=== PATIENT | male | born 1955 | race Caucasian/White ===

== ENCOUNTER 2016-05-11 13:45 | Observation (INO) | payer OTHER ==
[~2016-05-11] VITALS: Ht 167.6 cm; Wt 75.0 kg
[~2016-05-11 13:45] MED LIST: B12-1CHW CHEW; METO25 PO; OMEP40CA2; ST J81CH PO
[2016-05-11 13:46] VITALS: BP 205/106; PULSE 92; RESP 24; TEMP 97.7; O2SAT 99
[2016-05-11] MEDS ORDERED: ONDANSETRON HCL 4 MG/2 ML VIAL IV PUSH ONE (14:15)
[2016-05-11] MEDS ORDERED: MORPHINE SULFATE 4 MG/ML INJ IV PUSH ONE ×2 (14:15→16:00)
[2016-05-11] MEDS ORDERED: OMEP20TA PO (14:19)
[2016-05-11] MEDS ORDERED: VITA500T4 PO (14:19)
[2016-05-11] MEDS ORDERED: METO50TA PO (14:19)
[2016-05-11] MEDS ORDERED: VITA50TA PO (14:19)
[2016-05-11 14:40] LABS: AUTOMATED NEUTROPHIL # 2.2 TH/MM3 (1.8-7.7); BASOPHIL % 0.9 % (0.0-2.0); EOSINOPHIL % 0.8 % (0.0-4.0); HEMATOCRIT 36.5 % (39.0-51.0); LYMPH % 30.6 % (9.0-44.0); LYMPHOCYTE # 1.2 TH/MM3 (1.0-4.8); MEAN CELL VOLUME 102.4 FL (80.0-100.0); MEAN CORPUSCULAR HEMOGLOBIN 34.4 PG (27.0-34.0); MEAN CORPUSCULAR HGB CONC 33.6 % (32.0-36.0); MONO % 9.4 % (0.0-8.0); NEUT % 58.3 % (16.0-70.0); PLATELET COUNT 84 TH/MM3 (150-450); RED BLOOD COUNT 3.57 MIL/MM3 (4.50-5.90); RED CELL DISTRIBUTION WIDTH 14.6 % (11.6-17.2); WHITE BLOOD COUNT 3.8 TH/MM3 (4.0-11.0)
[2016-05-11 14:43] LABS: HEMO FLAGS AUTO DIFF
--- NOTE | 2016-05-11 14:44 | PD ---
HPI Chief Complaint: Headache Time Seen by Provider: 14:37 Travel History International Travel<30 days: No Contact w/Intl Traveler<30days: No Traveled to known affect area: No History of Present Illness HPI 61-year-old male that presents to the ED for evaluation of headache. Per patient about 2 days ago he had a fall. Per patient she's had falls like this in the past but this didn't hit his head really hard. Per patient he was seen at [facility] [place] and per patient he was diagnosed with a brain hematoma. Per patient his been doing well and per significant other who is a nurse states that he's been doing well until today. Today he developed a severe pain in his head. Per patient the pain is severe 10 out of 10. Per patient feels like the heads about to explode. He is never had pain like this before. He denies suffering headaches usually. Per patient she's had headaches since the injury but not as bad as this one. He states that he was sent home yesterday but unclear as to what they sent him out with. Per patient he was told that he needed to follow with a neurologist outpatient. brought the patient here because patient continues to complain of severe pain and would like patient to be evaluated here. He denies any numbness, tilling, weakness. No blurry vision or double vision. Mentation appears to be normal per . No allergies to medication. Patient takes no blood thinners and he did use to take an aspirin before the injury but he was told not to. Has no allergies to medication. No other medical problems. No new falls. PFSH Past Medical History Atrial Fibrillation: Yes Heart Rhythm Problems: Yes (AFIB) Cardiac Catheterization: Yes Cardiovascular Problems: Yes (CT, CARDIAC CATH) High Cholesterol: Yes (PREVIOUS) Congestive Heart Failure: No Diabetes: No Hypertension: Yes Myocardial Infarction: Yes (2 YEARS AGO PER THE PATIENT) Tetanus Vaccination: < 5 Years Influenza Vaccination: Yes Past Surgical History Coronary Artery Bypass Graft: No Social History Alcohol Use: No Tobacco Use: No (3-4 CIGARETTES PER DAY) Substance Use: No Allergies-Medications (Allergen,Severity, Reaction): Coded Allergies: No Known Allergies (Unverified , 05/11/16) Reported Meds & Prescriptions Reported Meds & Active Scripts Active Reported Vitamin B-1 (Thiamine HCl) 50 Mg Tab 50 Mg PO DAILY Omeprazole 20 Mg Tab 20 Mg PO DAILY Vitamin B-12 (Cyanocobalamin) 500 Mcg Tab 500 Mcg PO DAILY Metoprolol Tartrate 50 Mg Tab 50 Mg PO DAILY Review of Systems Except as stated in HPI: all other systems reviewed are Neg Physical Exam Narrative GENERAL: SKIN: Warm and dry. HEAD: Atraumatic. Normocephalic. EYES: Pupils equal and round 4 mm reactive to light and accommodation. No scleral icterus. No injection or drainage. ENT: No nasal bleeding or discharge. Mucous membranes pink and moist. Tongue is midline. No uvula deviation. NECK: Trachea midline. No JVD. CARDIOVASCULAR: Regular rate and rhythm. No murmurs, S3, S4. RESPIRATORY: No accessory muscle use. Clear to auscultation. Breath sounds equal bilaterally. GASTROINTESTINAL: Abdomen soft, non-tender, nondistended. Hepatic and splenic margins not palpable. MUSCULOSKELETAL: Extremities without clubbing, cyanosis, or edema. No obvious deformities. Full range of motion of the upper and lower extremities bilaterally. 2+ pulses bilaterally. NEUROLOGICAL: Awake and alert. No obvious cranial nerve deficits. Motor grossly within normal limits. Five out of 5 muscle strength in the arms and legs. Normal speech. Romberg is negative. Rhomberg test negative. Ambulate with no difficulty. PSYCHIATRIC: Appropriate mood and affect; insight and judgment normal. Data Data Last Documented VS Vital Signs Date Time Temp Pulse Resp B/P Pulse Ox O2 Delivery O2 Flow Rate FiO2 05/11/16 15:54 73 17 164/90 95 Room Air 05/11/16 13:46 97.7 Orders Complete Blood Count With Diff (05/11/16 14:09) Basic Metabolic Panel (Bmp) (05/11/16 14:09) Prothrombin Time / Inr (Pt) (05/11/16 14:09) Act Partial Throm Time (Ptt) (05/11/16 14:09) Magnesium (Mg) (05/11/16 14:09) Ct Brain W/O Iv Contrast(Rout) (05/11/16 14:09) Iv Access Insert/Monitor (05/11/16 14:09) Morphine Inj (Morphine Inj) (05/11/16 14:15) Ondansetron Inj (Zofran Inj) (05/11/16 14:15) Morphine Inj (Morphine Inj) (05/11/16 16:00) Electrocardiogram (05/11/16 16:33) Orthostatic Vital Signs (05/11/16 16:33) Labs Laboratory Tests Test 05/11/16 14:20 White Blood Count 3.8 TH/MM3 Red Blood Count 3.57 MIL/MM3 Hemoglobin 12.3 GM/DL Hematocrit 36.5 % Mean Corpuscular Volume 102.4 FL Mean Corpuscular Hemoglobin 34.4 PG Mean Corpuscular Hemoglobin 33.6 % Concent Red Cell Distribution Width 14.6 % Platelet Count 84 TH/MM3 Mean Platelet Volume 8.3 FL Neutrophils (%) (Auto) 58.3 % Lymphocytes (%) (Auto) 30.6 % Monocytes (%) (Auto) 9.4 % Eosinophils (%) (Auto) 0.8 % Basophils (%) (Auto) 0.9 % Neutrophils # (Auto) 2.2 TH/MM3 Lymphocytes # (Auto) 1.2 TH/MM3 Monocytes # (Auto) 0.4 TH/MM3 Eosinophils # (Auto) 0.0 TH/MM3 Basophils # (Auto) 0.0 TH/MM3 CBC Comment AUTO DIFF Differential Comment AUTO DIFF CONFIRMED Platelet Estimate LOW Platelet Morphology Comment NORMAL Stomatocytes 1+ Prothrombin Time 11.0 SEC Prothromb Time International 1.0 RATIO Ratio Activated Partial 24.9 SEC Thromboplast Time Sodium Level 139 MEQ/L Potassium Level 4.0 MEQ/L Chloride Level 107 MEQ/L Carbon Dioxide Level 25.5 MEQ/L Anion Gap 7 MEQ/L Blood Urea Nitrogen 10 MG/DL Creatinine 0.91 MG/DL Estimat Glomerular Filtration 84 ML/MIN Rate Random Glucose 137 MG/DL Calcium Level 9.2 MG/DL Magnesium Level 1.8 MG/DL [facility] Medical Decision Making Medical Screen Exam Complete: Yes Emergency Medical Condition: Yes Medical Record Reviewed: Yes Interpretation(s) CBC & BMP Diagram 05/11/16 14:20 coags WNL Last Impressions Head CT 05/11/16 3379 Signed Impressions: Service Date/Time: Wednesday, May 11, 2016 15:07 - CONCLUSION: Negative for acute process.. Jared Powers MD FACR Differential Diagnosis Headache versus sprain bleed versus hematoma versus stroke versus CVA versus cephalgia Narrative Course 61-year-old male that presents to the ED for evaluation of headache. Patient was properly examined and was found to have signs and symptoms concerning for brain bleed. Patient does have a history of brain hematoma. Partially patient was initially seen at a different facility. At This time and do recommend new imaging as patient's symptoms appear to be worsening as well as labs. Medical records from previous facility will be obtained. Patient was given IV pain medication. Labs and imaging showed no sign of acute disease. CT here did not show any sign of hematoma or bleeding. I was able to get the records from [facility] and it did show that the CT show a 3-4 mm hematoma on the left brain. Per the medical records he did not require any surgery at the time as it appeared to be chronic. From the medical records at this noticed that they mentioned multiple times the patient has had multiple syncopal episodes in the past 3 weeks. Unclear if patient has had any workup for this. Medical records did not state anything about the syncope other than the reason for the head injury. Case was discussed in my attending Dr Clayton who recommends the patient likely requires admission for syncopal workup as there is no clear reason as to why he is having this syncopal episodes. This was discussed with the family and patient who are in agreement with plan. RAJEEV was paged. Spoke with Dr Kyees who agrees with admission for syncopal workup. Procedures EKG Prior to Arrival: No Diagnosis Primary Impression: Syncopal episodes Qualified Code: R55 - Syncope, unspecified syncope type Additional Impression: Cephalgia Qualified Code: R51 - Acute nonintractable headache, unspecified headache type Admitting Information Admitting Physician Requests: Hugo Brown May 11, 2016 14:44
[2016-05-11 14:51] VITALS: BP 154/80; PULSE 74; RESP 13; O2SAT 95
[2016-05-11 14:53] LABS: BICARBONATE 25.5 MEQ/L (21.0-32.0); MAGNESIUM 1.8 MG/DL (1.5-2.5)
[2016-05-11 14:57] LABS: APTT (PATIENT) 24.9 SEC (24.3-30.1)
--- NOTE | 2016-05-11 15:21 | RADRPT ---
EXAM DATE/TIME: 05/11/2016 15:07 [facility] COMPARISON: No previous studies available for comparison. INDICATIONS : Cephalgia with dizziness. RADIATION DOSE: 38.28 CTDIvol (mGy) MEDICAL HISTORY : Cardiovascular disease. Hypertension. SURGICAL HISTORY : None. ENCOUNTER: Initial ACUITY: 1 day PAIN SCALE: 6/10 LOCATION: cranial TECHNIQUE: Multiple contiguous axial images were obtained of the head. Using automated exposure control and adj ustment of the mA and/or kV according to patient size, radiation dose was kept as low as reasonably a chievable to obtain optimal diagnostic quality images. FINDINGS: CEREBRUM: The ventricles are normal for age. No evidence of midline shift, mass lesion, hemorrhage or acute in farction. No extra-axial fluid collections are seen. POSTERIOR FOSSA: The cerebellum and brainstem are intact. The 4th ventricle is midline. The cerebellopontine angle i s unremarkable. EXTRACRANIAL: The visualized portion of the orbits is intact. SKULL: The calvaria is intact. No evidence of skull fracture. CONCLUSION: Negative for acute process.. Jared Powers MD FACR on May 11, 2016 at 15:19 Board Certified Radiologist. This report was verified electronically.
[2016-05-11 15:27] LABS: PLATELET ESTIMATE SMEAR LOW (NORMAL); PLATELET MORPHOLOGY NORMAL (NORMAL); SCAN/DIFF AUTO DIFF CONFIRMED; STOMATOCYTES 1+ (NORMAL)
[2016-05-11 15:54] VITALS: BP 164/90; PULSE 73; RESP 17; O2SAT 95
[2016-05-11 17:13] VITALS: BP_SYST 143; BP_SYST 168; BP_SYST 169; BP_DIAS 87; BP_DIAS 96; RESP 12; RESP 24; RESP 28
[2016-05-11 19:09] VITALS: BP 146/85; PULSE 69; RESP 18; O2SAT 96
[2016-05-11] MEDS ORDERED: SODIUM CHLORIDE 0.9% FLUSH 10 ML FLUSH IV FLUSH PRN (19:30)
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
[2016-05-11] MEDS ORDERED: PILL SPLITTER OTHER PRN (20:00)
[2016-05-11] MEDS: SODIUM CHLOR 0.9% 1000 ML INJ 1,000 ML IV SCH (22:06)
[2016-05-11] MEDS: SODIUM CHLORIDE 0.9% FLUSH 10 ML FLUSH IV FLUSH SCH (22:06)
[2016-05-11 22:47] LABS: AMPHETAMINE, URINE NEG (NEG); BARBITURATES, URINE NEG (NEG); COCAINE, URINE POS (NEG)
[2016-05-12] VITALS (9 sets, daily range): BP systolic 116–189; BP diastolic 73–102; PULSE 56–81; RESP 18–21; TEMP 97.6–98.2; O2SAT 91–97
[2016-05-12] MEDS: SODIUM CHLOR 0.9% 1000 ML INJ 1,000 ML IV SCH (07:00)
[2016-05-12 07:49] LABS: AUTOMATED NEUTROPHIL # 3.4 TH/MM3 (1.8-7.7); BASOPHIL % 0.6 % (0.0-2.0); EOSINOPHIL % 0.5 % (0.0-4.0); HEMATOCRIT 32.8 % (39.0-51.0); LYMPH % 27.9 % (9.0-44.0); LYMPHOCYTE # 1.5 TH/MM3 (1.0-4.8); MEAN CELL VOLUME 101.9 FL (80.0-100.0); MEAN CORPUSCULAR HEMOGLOBIN 34.3 PG (27.0-34.0); MEAN CORPUSCULAR HGB CONC 33.7 % (32.0-36.0); MONO % 7.6 % (0.0-8.0); NEUT % 63.4 % (16.0-70.0); PLATELET COUNT 84 TH/MM3 (150-450); RED BLOOD COUNT 3.22 MIL/MM3 (4.50-5.90); RED CELL DISTRIBUTION WIDTH 14.6 % (11.6-17.2); WHITE BLOOD COUNT 5.4 TH/MM3 (4.0-11.0)
[2016-05-12 07:52] LABS: HEMO FLAGS AUTO DIFF
[2016-05-12 08:14] LABS: ANION GAP 7 MEQ/L (5-15); BICARBONATE 27.9 MEQ/L (21.0-32.0); BLOOD UREA NITROGEN 10 MG/DL (7-18); CHLORIDE 105 MEQ/L (98-107); GLOMERULAR FILTRATION RATE 86 ML/MIN (>89); POTASSIUM 3.5 MEQ/L (3.5-5.1); SODIUM (NA) 140 MEQ/L (136-145)
[2016-05-12 08:39] LABS: HDL CHOLESTEROL 41.3 MG/DL (40.0-60.0); LDL CHOLESTEROL 52 MG/DL (0-99)
[2016-05-12 08:40] LABS: PLATELET ESTIMATE SMEAR LOW (NORMAL); PLATELET MORPHOLOGY NORMAL (NORMAL); SCAN/DIFF AUTO DIFF CONFIRMED
[2016-05-12] MEDS: PANTOPRAZOLE SOD 20 MG DELAYED RELEASE TAB PO SCH (08:51)
[2016-05-12] MEDS: THIAMINE HCL 100 MG TAB PO SCH (08:51)
[2016-05-12] MEDS: SODIUM CHLORIDE 0.9% FLUSH 10 ML FLUSH IV FLUSH SCH (08:52)
[2016-05-12] MEDS ORDERED: METOPROLOL TARTRATE 50 MG TAB PO SCH (09:00)
--- NOTE | 2016-05-12 09:12 | RADRPT ---
EXAM DATE/TIME: 05/12/2016 08:24 [facility] COMPARISON: No previous studies available for comparison. INDICATIONS : Syncope. MEDICAL HISTORY : Hypertension. Myocardial infarction. Afib. Headache. SURGICAL HISTORY : Cardiac catheterization. ENCOUNTER: Initial ACUITY: 3 days PAIN SCORE: 9/10 LOCATION: Bilateral neck PEAK SYSTOLIC VELOCITIES (cm/sec): ICA/CCA RATIO: Right: 0.7 Left: 0.9 ICA: Right: 55 Left: 64 CCA: Right: 81 Left: 68 ECA: Right: 51 Left: 28 VERTEBRAL: Right: 26 antegrade Left: 39 antegrade Elevated flow velocities and ICA/CCA ratios have been found to correlate with increased degrees of vessel stenosis, calculated as percentage of diameter relative to a normal segment of distal ICA/CCA FINDINGS: RIGHT CAROTID: No significant stenosis is visualized. The waveforms are within normal limits. LEFT CAROTID: No significant stenosis is visualized. The waveforms are within normal limits. VERTEBRAL ARTERIES: Antegrade flow is seen in both vertebral arteries. MISCELLANEOUS: None. CONCLUSION: No evidence of flow-limiting carotid stenosis. Jesus Alonzo MD on May 12, 2016 at 9:10 Board Certified Radiologist. This report was verified electronically.
[2016-05-12] MEDS ORDERED: oxyCODONE/ACETAMINOPHEN 5 MG/325 MG TAB PO PRN (09:15)
[2016-05-12] MEDS: oxyCODONE/ACETAMINOPHEN 5 MG/325 MG TAB PO PRN ×3 (10:37→20:54)
[2016-05-12] MEDS: CYANOCOBALAMIN 1,000 MCG TAB PO SCH (10:37)
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
--- NOTE | 2016-05-12 13:07 | EKG ---
Date Performed: 05/11/2016 Time Performed: 17:07:48 PTAGE: 61 years EKG: Sinus rhythm NORMAL ECG PREVIOUS TRACING : 11/22/2015 08.51 Compared to prior tracing no significant change DOCTOR: Mat Cummins Interpretating Date/Time 05/12/2016 13:06:40
--- NOTE | 2016-05-12 16:45 | EC ---
Study Study Date:05/12/2016 STUDY CONCLUSIONS SUMMARY LEFT VENTRICLE: The cavity size was normal. Wall thickness was normal. Systolic function was normal. The estimated ejection fraction was in the range of 55% to 60%. Wall motion was normal; there were no regional wall motion abnormalities. If LV function is below 40, please consider prescribing an ACEI or ARB or document rationale for non-use. PROCEDURE DATA STUDY STATUS: Elective. Procedure: Transthoracic echocardiography. Image quality was good. Scanning was performed from the parasternal, apical, and subcostal acoustic windows. Study completion: The patient tolerated the procedure well. Transthoracic echocardiography. M-mode, complete 2D, complete spectral Doppler, and color Doppler. Height: Height: 66in. Weight: Weight: 164.7lb. Body mass index: BMI: 26.6kg/m^2. Body surface area: BSA: 1.84m^2. Patient status: Inpatient. CARDIAC ANATOMY LEFT VENTRICLE: The cavity size was normal. Wall thickness was normal. Systolic function was normal. The estimated ejection fraction was in the range of 55% to 60%. Wall motion was normal; there were no regional wall motion abnormalities. AORTIC VALVE: Trileaflet; normal thickness leaflets. Doppler: Transvalvular velocity was within the normal range. There was no stenosis. No regurgitation. AORTA: Aortic root: The aortic root was normal in size. MITRAL VALVE: Structurally normal valve. Doppler: Transvalvular velocity was within the normal range. There was no evidence for stenosis. No regurgitation. Valve area by pressure half-time: 3.38cm^2. Indexed valve area by pressure half-time: 1.84cm^2/m^2. Peak gradient: 3mm Hg (D). LEFT ATRIUM: The atrium was normal in size. RIGHT VENTRICLE: The cavity size was normal. Wall thickness was normal. PULMONIC VALVE: Doppler: Transvalvular velocity was within the normal range. There was no evidence for stenosis. No regurgitation. TRICUSPID VALVE: Structurally normal valve. Doppler: Transvalvular velocity was within the normal range. No regurgitation. PULMONARY ARTERY: The main pulmonary artery was normal-sized. Systolic pressure was within the normal range. RIGHT ATRIUM: The atrium was normal in size. PERICARDIUM: There was no pericardial effusion. SYSTEMIC VEINS: Inferior vena cava: The vessel was normal in size. Patient weight: 164.7lb _Ejection fraction:_ 65-75% _Fractional shortening:_ 32% up to 5Kg 5-11.5Kg 11.6-22.9Kg 23-45Kg 45-57Kg Aortic Root 7-13 <17 13-22 17-27 17-27 LA diam 6-13 <23 24-38 33-47 37-40 RVID 10-17 7-15 7-15 7-18 8-17 LVIDd 12-22 <32 24-38 33-47 37-40 LVPW 2-4 3-6 5-7 6-8 7-8 IVS 2-4 3-6 5-7 6-8 7-8 BASIC MEASUREMENTS ADULT NORMAL Left ventricle LV internal dimension, ED, chordal *38.9 mm 43-52 level, PLAX LV internal dimension, ES, chordal 24.4 mm 23-38 level, PLAX Fractional shortening, chordal level, 37 % >29 PLAX LV posterior wall thickness, ED 12.8 mm IVS/LVPW ratio, ED 1.01 <1.3 Volume, ED, MOD, 1-plane 88 ml Volume, ES, MOD, 1-plane 29 ml Ejection fraction, MOD, 1-plane 67 % Stroke volume, MOD, 1-plane 59 ml Volume index, ED, MOD, 1-plane 48 ml/m^2 Volume index, ES, MOD, 1-plane 16 ml/m^2 Stroke index, MOD, 1-plane 32.1 ml/m^2 Ventricular septum Septal thickness, ED 12.9 mm Aortic valve Leaflet separation 21 mm 15-26 Left atrium Anterior-posterior dimension 36 mm Anterior-posterior dimension index 1.96 cm/m^2 <2.2 Right ventricle RV internal dimension, ED, PLAX 23.2 mm 19-38 BASIC MEASUREMENTS ADULT NORMAL Aortic valve Leaflet separation 21 mm 15-26 Aorta Root diameter, ED 29 mm 20-37 DOPPLER MEASUREMENTS ADULT NORMAL Aortic valve Peak velocity, S 89.6 cm/s Mitral valve Peak E-wave velocity 88.8 cm/s Peak A-wave velocity 83.4 cm/s Pressure half-time 65 ms Peak gradient, D 3 mm Hg Peak E/A ratio 1.1 Valve area, pressure half-time 3.38 cm^2 Valve area index, pressure half-time 1.84 cm^2/m^2 Pulmonic valve Peak velocity, S 92.3 cm/s LEGEND: Mean values are shown as u=mean value. Asterisk (*) avelar values outside specified normal range. Prepared and signed by Jose Jackson [id number]
--- NOTE | 2016-05-12 18:13 | HHI.PR ---
Subjective Remarks as per RN patient told her that he fell in am did not c/o falling to me c/o headache denies cp/sob/dizziness c/o left foot pain and difficulty ambulating Objective Vitals Vital Signs Date Time Temp Pulse Resp B/P Pulse Ox O2 Delivery O2 Flow Rate FiO2 05/12/16 16:03 98.1 63 20 129/80 95 05/12/16 10:49 97.7 60 20 167/92 97 176/83 159/85 05/12/16 08:19 97.8 71 20 189/102 97 05/12/16 04:49 60 05/12/16 04:00 97.6 72 20 132/80 95 119/82 134/79 05/12/16 00:00 97.6 56 20 168/93 96 156/82 174/85 05/11/16 19:09 69 18 146/85 96 Room Air Result Diagram: 05/12/16 0630 05/12/16 0630 Imaging Last Impressions Carotid Artery Ultrasound 05/12/16 0000 Signed Impressions: Service Date/Time: May 08:24 - CONCLUSION: No evidence of flow-limiting carotid stenosis. Jesus Alonzo MD Head CT 05/11/16 1409 Signed Impressions: Service Date/Time: Wednesday, May 11, 2016 15:07 - CONCLUSION: Negative for acute process.. Jared Powers MD FACR Objective Remarks GENERAL: This is a well-nourished, well-developed patient, in no apparent distress. SKIN: No rashes, ecchymoses or lesions. Cool and dry. HEAD: Atraumatic. Normocephalic. No temporal tenderness/ there is a scalp laceration on occipital region. EYES: Pupils equal round and reactive. Extraocular motions intact. No scleral icterus. No injection or drainage. ENT: Nose without bleeding, purulent drainage or septal hematoma. Throat without erythema, tonsillar hypertrophy or exudate. Uvula midline. Airway patent. NECK: Trachea midline. No JVD or lymphadenopathy. Supple, nontender, no meningeal signs. CARDIOVASCULAR: Regular rate and rhythm without murmurs, gallops, or rubs. RESPIRATORY: Clear to auscultation. Breath sounds equal bilaterally. No wheezes , rales, or rhonchi. GASTROINTESTINAL: Abdomen soft, non-tender, nondistended. No hepato-splenomegaly , or palpable masses. No guarding. MUSCULOSKELETAL: Extremities without clubbing, cyanosis, or edema. No joint tenderness, effusion, or edema noted. No calf tenderness. Negative Homans sign bilaterally. There is tenderness outpatient off the dorsal aspect of the left foot. NEUROLOGICAL: Awake and alert. Cranial nerves II through XII intact. Motor and sensory grossly within normal limits. Five out of 5 muscle strength in all muscle groups. Normal speech. Medications and IVs Current Medications Medications (Trade) Dose Ordered Sig/Mary Route Start Time Stop Time Status Last Admin (Vitamin B12) 500 mcg DAILY PO 05/12/16 09:00 05/12/16 10:37 (Lopressor) 50 mg DAILY PO 05/12/16 09:00 05/12/16 08:51 (Vitamin B1) 50 mg DAILY PO 05/12/16 09:00 05/12/16 08:51 Pantoprazole Sodium 20 mg 20 mg DAILY PO 05/12/16 09:00 05/12/16 08:51 (NS 1000 ml Inj) 1,000 ml @ 100 mls/hr Q10H IV 05/11/16 21:00 05/11/16 22:06 (NS Flush) 2 ml UNSCH PRN IV FLUSH 05/11/16 19:30 (NS Flush) 2 ml BID IV FLUSH 05/11/16 21:00 05/12/16 08:52 (Pill Splitter) 1 ea UNSCH PRN OTHER 05/11/16 20:00 (Percocet 5-325 Mg) 1 tab Q4H PRN PO 05/12/16 09:15 (Percocet 5-325 Mg) 2 tab Q4H PRN PO 05/12/16 09:15 05/12/16 15:20 (Norvasc) 10 mg DAILY PO 05/12/16 11:45 05/12/16 15:18 (Aspirin Chew) 81 mg DAILY CHEW 05/13/16 09:00 Urinary Catheter: No Vascular Central Line Catheter: No A/P Problem List: (1) Syncopal episodes ICD Code: R55 Status: Acute Plan: As per report from previous hospitalization at [facility] the patient has been having reportedly frequent syncopal episodes for the past 3 weeks. EKG reviewed by me showed sinus rhythm with a ventricular rate of [address]-T changes suggestive of active ischemia. Patient was orthostatic when going from supine to sitting, however blood pressure back to his baseline upon standing. Continue to monitor orthostatic blood pressure. I will place an IV fluids. Patient placed on outpatient observation, no events on telemetry, Carotid dopplers negative] Echo pending EEG pending (2) Cephalgia ICD Code: R51 Status: Acute Plan: Likely secondary to trauma. Continue pain control with oral Percocet. (3) Abnormal nuclear stress test ICD Code: R94.39 Status: Acute Plan: Patient had a stress test on 11/22/15 which showed mild decreased activity in the order of 20% of the basilar anterior wall and apical lateral wall which is described as borderline for ischemia. It isn't clear if the patient has been seen by cardiology. I will consult cardiology. The patient also states he has had chest pain when he gets the episodes atrial fibrillation. 05/[address] Bourgeois from cardiology who thinks that the patient should be treated medically. No further cardiac testing warranted. Patient had troponins negative 2. (4) Hypertension ICD Code: I10 Status: Acute Plan: Patient with uncontrolled hypertension. Amlodipine started as per cardiology. Will discuss with cardiology on switching beta khris since patient is positive for cocaine in the urine. Continue to monitor vital signs (5) Alcohol abuse ICD Code: F10.10 Status: Chronic Plan: Continue thiamine and folic acid. Patient is a poor historian and seems to have memory issues. Patient possibly could have some chronic alcohol damage to the brain and perhaps Wernicke-Korsakoff syndrome. No evidence of active withdrawal. Will place on CIWA protocol. (6) Pancytopenia ICD Code: D61.818 Status: Chronic Plan: Likely secondary to alcohol abuse. Hematology consulted - recommendations pending. WBC increased to 5.4 As per records the patient has been pancytopenic (7) CAD (coronary artery disease) ICD Code: I25.10 Status: Acute Plan: Patient on beta khris. Fu cardiology recommendations. Not on aspirin - will not rx since there is h/o ? subdural hematoma. (8) Orthostatic hypotension ICD Code: I95.1 Status: Acute Plan: Patient's blood pressure dropped from 169/96-143/87 from supine to sitting however when up to 168/96 upon standing. blood pressure again dropped from 176/83-159/59. Continue IV fluids. (9) Left foot pain ICD Code: M79.672 Status: Acute Plan: Patient states that the dorsal aspect of the left foot hurts since he last fell. I will order an x-ray of the foot. (10) Ambulatory dysfunction ICD Code: R26.2 Status: Acute Plan: Likely cause. The left foot pain. I will order physical therapy evaluation. Problem Qualifiers (1) Syncopal episodes: Qualified Code: R55 - Syncope, unspecified syncope type (2) Cephalgia: Qualified Code: R51 - Acute nonintractable headache, unspecified headache type (3) Hypertension: Qualified Code: I10 - Essential hypertension (4) CAD (coronary artery disease): Qualified Code: I25.10 - Coronary artery disease involving [place] coronary artery of k[place] heart without angina pectoris Joseph Pichardo MD May 12, 2016 18:13
--- NOTE | 2016-05-12 20:53 | RADRPT ---
EXAM DATE/TIME: 05/12/2016 18:46 [facility] COMPARISON: No previous studies available for comparison. INDICATIONS : Patient fell three days ago. MEDICAL HISTORY : Gastroesophageal reflux disease. Hypertension. Myocardial infarction. SURGICAL HISTORY : Cardiac catherization. ENCOUNTER: Initial ACUITY: 3 days PAIN SCORE: 5/10 LOCATION: Left Foot. FINDINGS: No definite fractures, or dislocations are identified. No definite lytic or sclerotic lesion is seen . There are degenerative changes within multiple joints mainly the interphalangeal joints and the fir st metatarsophalangeal joint. CONCLUSION: Chronic changes and no evidence for acute fracture. Maribeth Aparicio MD on May 12, 2016 at 20:51 Board Certified Radiologist. This report was verified electronically.
[2016-05-12 21:08] LABS: INDIRECT BILIRUBIN 0.3 MG/DL (0.0-0.8); TOTAL BILIRUBIN ADULT 0.4 MG/DL (0.2-1.0)
[2016-05-13] MEDS: DILTIAZEM HCL 30 MG TAB PO SCH ×4 (00:57→18:27)
[2016-05-13] MEDS: oxyCODONE/ACETAMINOPHEN 5 MG/325 MG TAB PO PRN ×4 (00:57→18:28)
[2016-05-13] MEDS: SODIUM CHLORIDE 0.9% FLUSH 10 ML FLUSH IV FLUSH SCH ×2 (00:57→09:37)
[2016-05-13 04:07] VITALS: BP 125/62; PULSE 79; RESP 18; TEMP 97.8; O2SAT 91
--- NOTE | 2016-05-13 05:27 | MG ---
cc: SHARMIN COLORADO M.D. Lab No: [id number] Date: 05/12/2016 Age: 61 Sex: M Race: DATE OF 1955 AGE [age] years old EEG NUMBER [id number] Keyes NOTE NG 84. Awake, drowsy, asleep study with photic stimulation. CT negative of the head. INDICATIONS FOR PROCEDURE A 61-year-old male status post fall two days ago with severe headache. Went to [facility], diagnosed with a brain hematoma. PAST MEDICAL HISTORY History of A-fib. Cardiac cath. Hyperlipidemia. Hypertension. Syncope. MEDICATIONS Lopressor. Protonix. DESCRIPTION OF RECORD Overall background alpha, 8 Hz, 20 microvolts. Low-amplitude EEG with muscle artifact. The patient is talking but overall symmetrical background. EKG looks sinus. Photic stimulation without any significant driving response. IMPRESSION Overall normal-appearing EEG. There is no evidence of any epileptic activity on this one recording. Clinical correlation.. MD NYA Garland/STEVE /4:17 PM /5:18 AM
[2016-05-13 07:20] VITALS: PULSE 89
[2016-05-13 08:20] VITALS: BP 133/80; PULSE 85; RESP 18; TEMP 97.2; O2SAT 95
[2016-05-13] MEDS ORDERED: ASPIRIN 81 MG CHEW TAB CHEW SCH (09:00)
[2016-05-13] MEDS: CYANOCOBALAMIN 1,000 MCG TAB PO SCH (09:34)
[2016-05-13] MEDS: THIAMINE HCL 100 MG TAB PO SCH (09:34)
[2016-05-13] MEDS: PANTOPRAZOLE SOD 20 MG DELAYED RELEASE TAB PO SCH (09:36)
--- NOTE | 2016-05-13 09:42 | RADRPT ---
EXAM DATE/TIME: 05/13/2016 07:22 [facility] COMPARISON: US CAROTID ARTERIES, May 12, 2016, 8:24. INDICATIONS : Low platelets, evaluate liver and spleen. MEDICAL HISTORY : Hypertension. Myocardial infarction. Afib. Headache. SURGICAL HISTORY : Cardiac catheterization. ENCOUNTER: Initial ACUITY: 1 day PAIN SCORE: 3/10 LOCATION: Bilateral upper quadrant MEASUREMENTS: LIVER: 16.6 cm length COMMON DUCT: 6 mm RIGHT KIDNEY: 10.0 x 5.4 x 6.4 cm SPLEEN: 9.4 cm length FINDINGS: LIVER: Normal in size. Echotexture is within normal limits. No mass lesion is identified. COMMON DUCT: No intraluminal mass or stone visualized. GALLBLADDER: The gallbladder is contracted. No stones are seen. PANCREAS: The visualized portions are within normal limits. RIGHT KIDNEY: No hydronephrosis, stone or mass. SPLEEN: No focal lesion. CONCLUSION: 1. The liver and spleen are normal in size. 2. The gallbladder is contracted. Levi Powers MD on May 13, 2016 at 9:37 Board Certified Radiologist. This report was verified electronically.
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
--- NOTE | 2016-05-13 10:55 | PD.CARD.PN ---
Subjective Subjective Remarks No events over night No chest pain, no shortness of breath, no syncopal episodes/lightheadedness No arrhythmia/blocks on telemetry over night Objective Medications Current Medications Medications (Trade) Dose Ordered Sig/Mary Route Start Time Stop Time Status Last Admin (Vitamin B12) 500 mcg DAILY PO 05/12/16 09:00 05/13/16 09:34 (Vitamin B1) 50 mg DAILY PO 05/12/16 09:00 05/13/16 09:34 Pantoprazole Sodium 20 mg 20 mg DAILY PO 05/12/16 09:00 05/13/16 09:36 (NS 1000 ml Inj) 1,000 ml @ 42 mls/hr [id number] IV 05/11/16 21:00 05/11/16 22:06 (NS Flush) 2 ml UNSCH PRN IV FLUSH 05/11/16 19:30 (NS Flush) 2 ml BID IV FLUSH 05/11/16 21:00 05/13/16 09:37 (Pill Splitter) 1 ea UNSCH PRN OTHER 05/11/16 20:00 (Percocet 5-325 Mg) 1 tab Q4H PRN PO 05/12/16 09:15 (Percocet 5-325 Mg) 2 tab Q4H PRN PO 05/12/16 09:15 05/13/16 06:11 (Aspirin Chew) 81 mg DAILY CHEW 05/13/16 09:00 05/13/16 09:36 (Cardizem) 30 mg Q6HR PO 05/13/16 00:00 05/13/16 06:10 Vital Signs / I&O Vital Signs Date Time Temp Pulse Resp B/P Pulse Ox O2 Delivery O2 Flow Rate FiO2 05/13/16 08:20 97.2 85 18 133/80 95 05/13/16 04:07 97.8 79 18 125/62 91 05/13/16 01:59 20 05/12/16 23:03 98.1 79 18 145/78 93 05/12/16 19:28 98.2 81 21 116/73 91 05/12/16 18:30 65 05/12/16 16:03 98.1 63 20 129/80 95 05/12/16 10:49 97.7 60 20 167/92 97 176/83 159/85 Physical Exam GENERAL: NAD, AAOx3 SKIN: Warm and dry. HEAD: Normocephalic. EYES: Pupils equal and round. No scleral icterus. No injection or drainage. ENT: No nasal bleeding or discharge. Mucous membranes pink and moist. NECK: Trachea midline. No JVD. CARDIOVASCULAR: Regular rate and rhythm. No murmurs noted RESPIRATORY: No accessory muscle use. Clear to auscultation. Breath sounds equal bilaterally. GASTROINTESTINAL: Abdomen soft, non-tender, nondistended. Hepatic and splenic margins not palpable. MUSCULOSKELETAL: Extremities without clubbing, cyanosis, or edema. No obvious deformities. NEUROLOGICAL: Awake and alert. No obvious cranial nerve deficits. Motor grossly within normal limits. Five out of 5 muscle strength in the arms and legs. Normal speech. PSYCHIATRIC: Appropriate mood and affect; insight and judgment normal. Laboratory Laboratory Tests Test 05/11/16 05/11/16 05/12/16 14:20 22:00 06:30 White Blood Count 3.8 TH/MM3 5.4 TH/MM3 (4.0-11.0) (4.0-11.0) Red Blood Count 3.57 MIL/MM3 3.22 MIL/MM3 (4.50-5.90) (4.50-5.90) Hemoglobin 12.3 GM/DL 11.0 GM/DL (13.0-17.0) (13.0-17.0) Hematocrit 36.5 % 32.8 % (39.0-51.0) (39.0-51.0) Mean Corpuscular Volume 102.4 FL 101.9 FL (80.0-100.0) (80.0-100.0) Mean Corpuscular Hemoglobin 34.4 PG 34.3 PG (27.0-34.0) (27.0-34.0) Mean Corpuscular Hemoglobin 33.6 % 33.7 % Concent (32.0-36.0) (32.0-36.0) Red Cell Distribution Width 14.6 % 14.6 % (11.6-17.2) (11.6-17.2) Platelet Count 84 TH/MM3 84 TH/MM3 (150-450) (150-450) Mean Platelet Volume 8.3 FL 8.3 FL (7.0-11.0) (7.0-11.0) Neutrophils (%) (Auto) 58.3 % 63.4 % (16.0-70.0) (16.0-70.0) Lymphocytes (%) (Auto) 30.6 % 27.9 % (9.0-44.0) (9.0-44.0) Monocytes (%) (Auto) 9.4 % (0.0-8.0) 7.6 % (0.0-8.0) Eosinophils (%) (Auto) 0.8 % (0.0-4.0) 0.5 % (0.0-4.0) Basophils (%) (Auto) 0.9 % (0.0-2.0) 0.6 % (0.0-2.0) Neutrophils # (Auto) 2.2 TH/MM3 3.4 TH/MM3 (1.8-7.7) (1.8-7.7) Lymphocytes # (Auto) 1.2 TH/MM3 1.5 TH/MM3 (1.0-4.8) (1.0-4.8) Monocytes # (Auto) 0.4 TH/MM3 0.4 TH/MM3 (0-0.9) (0-0.9) Eosinophils # (Auto) 0.0 TH/MM3 0.0 TH/MM3 (0-0.4) (0-0.4) Basophils # (Auto) 0.0 TH/MM3 0.0 TH/MM3 (0-0.2) (0-0.2) CBC Comment AUTO DIFF AUTO DIFF Differential Comment AUTO DIFF AUTO DIFF CONFIRMED CONFIRMED Platelet Estimate LOW (NORMAL) LOW (NORMAL) Platelet Morphology Comment NORMAL NORMAL (NORMAL) (NORMAL) Stomatocytes 1+ (NORMAL) Prothrombin Time 11.0 SEC (9.8-11.6) Prothromb Time International 1.0 RATIO Ratio Activated Partial 24.9 SEC Thromboplast Time (24.3-30.1) Sodium Level 139 MEQ/L 140 MEQ/L (136-145) (136-145) Potassium Level 4.0 MEQ/L 3.5 MEQ/L (3.5-5.1) (3.5-5.1) Chloride Level 107 MEQ/L 105 MEQ/L (98-107) (98-107) Carbon Dioxide Level 25.5 MEQ/L 27.9 MEQ/L (21.0-32.0) (21.0-32.0) Anion Gap 7 MEQ/L (5-15) 7 MEQ/L (5-15) Blood Urea Nitrogen 10 MG/DL (7-18) 10 MG/DL (7-18) Creatinine 0.91 MG/DL 0.90 MG/DL (0.60-1.30) (0.60-1.30) Estimat Glomerular Filtration 84 ML/MIN (>89) 86 ML/MIN (>89) Rate Random Glucose 137 MG/DL 123 MG/DL (74-106) (74-106) Calcium Level 9.2 MG/DL 8.6 MG/DL (8.5-10.1) (8.5-10.1) Magnesium Level 1.8 MG/DL (1.5-2.5) Troponin I LESS THAN 0.02 LESS THAN 0.02 NG/ML NG/ML (0.02-0.05) (0.02-0.05) Urine Opiates Screen POS (NEG) Urine Barbiturates Screen NEG (NEG) Urine Amphetamines Screen NEG (NEG) Urine Benzodiazepines Screen POS (NEG) Urine Cocaine Screen POS (NEG) Urine Cannabinoids Screen NEG (NEG) Ethyl Alcohol Level LESS THAN 3 MG/DL (0-5) Hepatitis A IgM Antibody NEGATIVE (NEGATIVE) Hepatitis B Surface Antigen NEGATIVE (NEGATIVE) Hepatitis B Core IgM Antibody NEGATIVE (NEGATIVE) Hepatitis C Antibody REACTIVE (NEGATIVE) Total Bilirubin 0.4 MG/DL (0.2-1.0) Direct Bilirubin 0.1 MG/DL (0.0-0.2) Indirect Bilirubin 0.3 MG/DL (0.0-0.8) Aspartate Amino Transf 45 U/L (15-37) (AST/SGOT) Alanine Aminotransferase 40 U/L (12-78) (ALT/SGPT) Alkaline Phosphatase 137 U/L (45-117) Total Protein 6.6 GM/DL (6.4-8.2) Albumin 2.8 GM/DL (3.4-5.0) Triglycerides Level 122 MG/DL (42-150) Cholesterol Level 118 MG/DL (120-200) LDL Cholesterol 52 MG/DL (0-99) HDL Cholesterol 41.3 MG/DL (40.0-60.0) Cholesterol/HDL Ratio 2.85 RATIO Vitamin B12 Level 1610 PG/ML (193-986) Folate 18.5 NG/ML (3.1-17.5) Assessment and Plan Problem List: (1) Syncopal episodes (2) Orthostatic hypotension (3) Alcohol abuse (4) Hypertension (5) Cephalgia (6) Abnormal nuclear stress test (7) Cocaine abuse (8) Ambulatory dysfunction (9) PAF (paroxysmal atrial fibrillation) Assessment and Plan 1) Syncope of unknown cause, difficult as patient is not a good historian 2) EF 55-60%, carotid negative for significant lesion, no arrhythmias on telemetry 3) No further inpatient work up from a cardiology standpoint, should follow with [facility] for further work up, consider Holter/Event monitor outpatient for rhythm assessment while going through a normal day 4) Cocaine positive, ? ETOH abuse history, gait dysfunction? 5) History of borderline ischemic stress test, currently asymptomatic with history of subacute/chronic cranial hematoma and questionable cocaine history, would continue with medical management, can follow up with [facility] for further testing/procedure 6) PAF, not on ASA/anti-coagulation, started on ASA 81mg, with current syncopal episodes would not place on anti-coagulation, can be reconsidered outpatient 7) With cocaine history, will stop BB and start on Cardizem for both HTN and heart rate control with PAF 8) Will see PRN, call with questions Problem Qualifiers (1) Syncopal episodes: Qualified Code: R55 - Syncope, unspecified syncope type (2) Hypertension: Qualified Code: I10 - Essential hypertension (3) Cephalgia: Qualified Code: R51 - Acute nonintractable headache, unspecified headache type Jayce Bourgeois DO May 13, 2016 10:55
[2016-05-13 11:56] VITALS: BP 100/55; PULSE 70; RESP 18; TEMP 98.2; O2SAT 95
[2016-05-13] MEDS: SODIUM CHLOR 0.9% 1000 ML INJ 1,000 ML IV SCH (14:29)
[2016-05-13 16:19] LABS: HEMOGLOBIN A1b 0.6 %; HEMOGLOBIN Ao 86.3 %; HEMOGLOBIN F 1.4 %; HEMOGLOBIN LA1C 1.7 %; HEMOGLOBIN P3 4.7 %
[2016-05-13 16:25] VITALS: PULSE 75
[2016-05-13 16:26] VITALS: BP_SYST 120; BP_SYST 130; BP_SYST 143; BP_DIAS 68; BP_DIAS 72; BP_DIAS 78; PULSE 76; RESP 18; O2SAT 95
[2016-05-13] MEDS ORDERED: Aspirin Chew CHEW (17:26)
[2016-05-13] MEDS ORDERED: DILT31TA PO (17:26)
--- NOTE | 2016-05-13 17:27 | HHI.DCPOC ---
Discharge Care Plan Diagnosis: (1) PAF (paroxysmal atrial fibrillation) (2) Cocaine abuse (3) Ambulatory dysfunction (4) Left foot pain (5) Pancytopenia (6) Alcohol abuse (7) Orthostatic hypotension (8) Abnormal nuclear stress test (9) Hypertension (10) Syncopal episodes (11) Cephalgia Goals to Promote Your Health * To prevent worsening of your condition and complications * To maintain your health at the optimal level Directions to Meet Your Goals Take your medications as prescribed Follow your dietary instruction Follow activity as directed Keep your appointments as scheduled Take your immunizations and boosters as scheduled If your symptoms worsen call your PCP, if no PCP go to Urgent Care Center or Emergency Room Smoking is Dangerous to Your Health. Avoid second hand smoke Call the 24-hour hour crisis hotline for domestic abuse at Joseph Pichardo MD May 13, 2016 17:27
[2016-05-13] MEDS ORDERED: GETGO ROLLING W1 MI1 (17:32)
--- NOTE | 2016-05-13 17:34 | HHI.DS ---
Discharge Summary Admission Date May 11, 2016 at 17:11 Discharge Date: May 13, 2016 Admitting Diagnosis multiple syncopal episodes, head injury (1) Syncopal episodes ICD Code: R55 Diagnosis: Principal (2) Cephalgia ICD Code: R51 Diagnosis: Principal (3) Abnormal nuclear stress test ICD Code: R94.39 Diagnosis: Principal (4) Hypertension ICD Code: I10 Diagnosis: Principal (5) Alcohol abuse ICD Code: F10.10 Diagnosis: Secondary (6) Pancytopenia ICD Code: D61.818 Diagnosis: Principal (7) CAD (coronary artery disease) ICD Code: I25.10 Diagnosis: Principal (8) Orthostatic hypotension ICD Code: I95.1 Diagnosis: Principal (9) Left foot pain ICD Code: M79.672 Diagnosis: Principal (10) Ambulatory dysfunction ICD Code: R26.2 Diagnosis: Principal Procedures none Brief History - From Admission This is a 61-year-old male with past medical history significant for atrial fibrillation, frequent syncopal episodes for the past few weeks, [place], who presents to [facility] complaining of severe headache localized in the occipital area. The patient states that 2 days ago he was in his usual state of health when he passed out May 07 and then again on May 08 after which he took some beers and passed out again while walking backwards hitting the back of his head and sustaining a head laceration. The patient states that he was taken to the hospital to be evaluated and to have the laceration taken care of. As per records from [facility] the patient felt the night before on May 07 however refuse treatment. He called EMS on May 08 after passing out twice and went to the hospital. 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 No acute intracranial abnormality found. CT of the cervical spine without contrast did not show any fracture or misalignment. The patient denies any palpitations or chest pain or shortness of breath. However he states that when he gets his episodes of atrial fibrillation then he feels chest pain. Also denies diarrhea, abdominal pain, nausea, dysuria, fevers, chills, cough. CBC/BMP: 05/12/16 0630 05/12/16 0630 Significant Findings Laboratory Tests Test 05/11/16 05/11/16 05/12/16 14:20 22:00 06:30 White Blood Count 3.8 TH/MM3 (4.0-11.0) Red Blood Count 3.57 MIL/MM3 3.22 MIL/MM3 (4.50-5.90) (4.50-5.90) Hemoglobin 12.3 GM/DL 11.0 GM/DL (13.0-17.0) (13.0-17.0) Hematocrit 36.5 % 32.8 % (39.0-51.0) (39.0-51.0) Mean Corpuscular Volume 102.4 FL 101.9 FL (80.0-100.0) (80.0-100.0) Mean Corpuscular Hemoglobin 34.4 PG 34.3 PG (27.0-34.0) (27.0-34.0) Platelet Count 84 TH/MM3 84 TH/MM3 (150-450) (150-450) Monocytes (%) (Auto) 9.4 % (0.0-8.0) Platelet Estimate LOW (NORMAL) LOW (NORMAL) Stomatocytes 1+ (NORMAL) Estimat Glomerular Filtration 84 ML/MIN (>89) 86 ML/MIN (>89) Rate Random Glucose 137 MG/DL 123 MG/DL (74-106) (74-106) Troponin I LESS THAN 0.02 LESS THAN 0.02 NG/ML NG/ML (0.02-0.05) (0.02-0.05) Urine Opiates Screen POS (NEG) Urine Benzodiazepines Screen POS (NEG) Urine Cocaine Screen POS (NEG) Hepatitis C Antibody REACTIVE (NEGATIVE) Aspartate Amino Transf 45 U/L (15-37) (AST/SGOT) Alkaline Phosphatase 137 U/L (45-117) Albumin 2.8 GM/DL (3.4-5.0) Cholesterol Level 118 MG/DL (120-200) Vitamin B12 Level 1610 PG/ML (193-986) Folate 18.5 NG/ML (3.1-17.5) Imaging Last Impressions Liver Ultrasound 05/13/16 0000 Signed Impressions: Service Date/Time: Friday, May 13, 2016 07:22 - CONCLUSION: 1. The liver and spleen are normal in size. 2. The gallbladder is contracted. Levi Powers MD Foot X-Ray 05/12/16 0000 Signed Impressions: Service Date/Time: May 18:46 - CONCLUSION: Chronic changes and no evidence for acute fracture. K. Hay Aparicio MD Carotid Artery Ultrasound 05/12/16 0000 Signed Impressions: Service Date/Time: May 08:24 - CONCLUSION: No evidence of flow-limiting carotid stenosis. Jesus Alonzo MD Head CT 05/11/16 1409 Signed Impressions: Service Date/Time: Wednesday, May 11, 2016 15:07 - CONCLUSION: Negative for acute process.. Jared Powers MD FACR PE at Discharge GENERAL: This is a well-nourished, well-developed patient, in no apparent distress. SKIN: No rashes, ecchymoses or lesions. Cool and dry. HEAD: Atraumatic. Normocephalic. No temporal tenderness/ there is a scalp laceration on occipital region. EYES: Pupils equal round and reactive. Extraocular motions intact. No scleral icterus. No injection or drainage. ENT: Nose without bleeding, purulent drainage or septal hematoma. Throat without erythema, tonsillar hypertrophy or exudate. Uvula midline. Airway patent. NECK: Trachea midline. No JVD or lymphadenopathy. Supple, nontender, no meningeal signs. CARDIOVASCULAR: Regular rate and rhythm without murmurs, gallops, or rubs. RESPIRATORY: Clear to auscultation. Breath sounds equal bilaterally. No wheezes , rales, or rhonchi. GASTROINTESTINAL: Abdomen soft, non-tender, nondistended. No hepato-splenomegaly , or palpable masses. No guarding. MUSCULOSKELETAL: Extremities without clubbing, cyanosis, or edema. No joint tenderness, effusion, or edema noted. No calf tenderness. Negative Homans sign bilaterally. There is tenderness outpatient off the dorsal aspect of the left foot. NEUROLOGICAL: Awake and alert. Cranial nerves II through XII intact. Motor and sensory grossly within normal limits. Five out of 5 muscle strength in all muscle groups. Normal speech. Hospital Course (1) Syncopal episodes As per report from previous hospitalization at [facility] the patient has been having reportedly frequent syncopal episodes for the past 3 weeks. EKG reviewed by me showed sinus rhythm with a ventricular rate of [address]- T changes suggestive of active ischemia. Patient was orthostatic when going from supine to sitting, however blood pressure back to his baseline upon standing. Continue to monitor orthostatic blood pressure. Treated w IV fluids. Patient placed on outpatient observation, no events on telemetry, Carotid dopplers negative] Echo - EF with normal systolic function. Normal wall motion. EEG - normal EEG Syncope likely multifactorial due to alcohol abuse in conjunction with other drugs -urine toxicology positive for coccaine, Benzodiazepines, opiates. Patient advised to stop abusing alcohol and especially avoid benzo's and opiates and cocaine.. (2) Cephalgia Likely secondary to trauma. Pain control with Percocet. (3) Abnormal nuclear stress test Patient had a stress test on 11/22/15 which showed mild decreased activity in the order of 20% of the basilar anterior wall and apical lateral wall which is described as borderline for ischemia. It isn't clear if the patient has been seen by cardiology. I will consult cardiology. The patient also states he has had chest pain when he gets the episodes atrial fibrillation. 05/[address] Bourgeois from cardiology who thinks that the patient should be treated medically. No further cardiac testing warranted. Patient had troponins negative 2. (4) Hypertension Patient with uncontrolled hypertension. Amlodipine started as per cardiology. Will discuss with cardiology on switching beta khris since patient is positive for cocaine in the urine. Continue to monitor vital signs (5) Alcohol abuse Continue thiamine and folic acid. Patient is a poor historian and seems to have memory issues. Patient possibly could have some chronic alcohol damage to the brain and perhaps Wernicke-Korsakoff syndrome. No evidence of active withdrawal. Will place on CIWA protocol. (6) Pancytopenia Likely secondary to alcohol abuse. Hematology consulted - Pancytopenia due to alcohol ingestion. As per records the patient has been pancytopenic in the past. (7) CAD (coronary artery disease) Patient on beta khris. Fu cardiology recommendations. Not on aspirin - will not rx since there is h/o ? subdural hematoma. (8) Orthostatic hypotension Patient's blood pressure dropped from 169/96-143/87 from supine to sitting however when up to 168/96 upon standing. blood pressure again dropped from 176/83-159/59. Continue IV fluids. (9) Left foot pain Patient states that the dorsal aspect of the left foot hurts since he last fell. I will order an x-ray of the foot. (10) Ambulatory dysfunction Likely cause ofThe left foot pain. PT consulted. Pt Condition on Discharge: Stable Discharge Disposition: Disch w/ Home Health Serv Discharge Time: > 30 minutes Discharge Instructions DIET: Follow Instructions for: Heart Healthy Diet Activities you can perform: See Additionl Instruction Other Activity Instructions: Please use rolling walker to ambulate. Follow up Referrals: PCP Follow-up - 1 Week @ [facility] New Medications: Walker Rolling/GetGo (Walker Rolling/GetGo) 1 Mis Mis 1 EA .ROUTE DIRECTED #1 EA Diltiazem (Cardizem) 30 Mg Tab 30 MG PO Q6HR Blood Pressure Management #120 TAB ([Aspirin Chew]) 81 MG CHEW 81 MG CHEW DAILY Blood Clot Prevention #30 TAB.CHEW Continued Medications: Cyanocobalamin (Vitamin B-12) 500 Mcg Tab 500 MCG PO DAILY Nutritional Supplement #1 Ref 0 BOTTLE Omeprazole (Omeprazole) 20 Mg Tab 20 MG PO DAILY #30 Ref 0 TAB Thiamine (Vitamin B-1) 50 Mg Tab 50 MG PO DAILY Nutritional Supplement Ref 0 TAB Discontinued Medications: Metoprolol Tartrate (Metoprolol Tartrate) 50 Mg Tab 50 MG PO DAILY #30 Ref 0 TAB Joseph Pichardo MD May 13, 2016 17:34
== END 2016-05-13 19:51 | disposition home or self-care (01) ==
LOC: NEPC 13:45 → NEDA 17:11 → NEPGCP 23:21
PROVIDERS: ADMIT Hospitalist; ATTEND Hospitalist
DX: I95.1 Orthostatic hypotension (principal); I10 Essential (primary) hypertension; M19.90 Unspecified osteoarthritis, unspecified site; R51 Headache; R94.39 Abnormal result of other cardiovascular function study; F10.10 Alcohol abuse, uncomplicated; D61.818 Other pancytopenia; B18.2 Chronic viral hepatitis C; K21.9 Gastro-esophageal reflux disease without esophagitis; M79.672 Pain in left foot; I48.0 Paroxysmal atrial fibrillation; I25.2 Old myocardial infarction; I25.10 Atherosclerotic heart disease of native coronary artery without angina pectoris
CPT/HCPCS: 70450; 73630; 76705; 80048; 80061; 80074; 80076; 80307; 82607; 82746; 83036; 83735; 84484; 85025; 85610; 85730; 93005; 93306; 93880; 95819; 96374; 96375; 96376; 97162; 99285; G0378; G8987; G8988; J2270; J2405; J7030